=== PATIENT | male | born 1965 | race Caucasian/White ===

== ENCOUNTER 2021-04-29 09:26 | Emergency (ER) | payer BC, OTHER ==
[~2021-04-29] VITALS: Ht 185.4 cm; Wt 71.8 kg
[2021-04-29 09:34] VITALS: BP 190/97
--- NOTE | 2021-04-29 10:15 | NUR ---
THIS IS A 55 YEAR OLD MALE WHO C.O OF TWO "BUMPS ON THE BACK OF HEAD".
--- NOTE | 2021-04-29 10:35 | NUR ---
Patient/Caregiver given discharge instructions and they have confirmed that they understand the instructions. Patient ambulatory with steady gait. NAD, all questions answered appropriately, denies additional needs at this time. No personal belongings left in room after discharge.
== END 2021-04-29 10:39 | disposition home or self-care (01) ==
LOC: ED 10:15
DX: L03.811 Cellulitis of head [any part, except face] (principal); F17.210 Nicotine dependence, cigarettes, uncomplicated
CPT/HCPCS: 99406